=== PATIENT | female | born 1985 | race Caucasian/White ===

== ENCOUNTER 2020-10-19 03:45 | Inpatient (IN) | payer OTHER ==
[2020-10-19 05:03] LABS: #Monocytes 0.8 10x3/uL (0.0-1.1); %Basophils 0.3 % (0.0-2.0); %Eosinophils 0.4 % (0.0-6.0); %Lymphocytes 12.7 % (18.0-47.0); %Monocytes 9.8 % (0.0-10.0); %Neutrophils 76.5 % (40.0-75.0); Hemoglobin 12.6 g/dL (12.0-15.5); Mean Corpuscular HGB CONC 34.4 g/dL (32.0-36.0); Mean Corpuscular Hemoglobin 31.9 pg (27.0-33.0); Mean Corpuscular Volume 92.7 fl (81.6-98.3); Mean Platelet Volume 10.8 fl (7.4-10.4); Platelet Count 253 10x3/uL (150-450); RBC Distribution Width 13.4 % (11.5-14.5); Red Blood Cell (RBC) Count 3.95 10x6/uL (3.90-5.03); White Blood Cell (WBC) Count 7.8 10x3/uL (3.5-10.5)
[2020-10-19] MEDS ORDERED: Mag-Al Plus 1200 MG/1200 MG/120 MG/30 ML UDCUP ONE (05:06)
[2020-10-19] MEDS ORDERED: Lidocaine Viscous Sol 2% 15 ml UD Cup ONE (05:06)
[2020-10-19] MEDS ORDERED: Morphine 2 MG/ML VIAL ONE (05:07)
[2020-10-19 05:21] LABS: Bilirubin Neg (Negative); Blood, Urine 10 (Negative); Clarity Cloudy (Clear); Glucose, Urine (Dipstick) Normal (Negative); Ketone, Urine 50 mg/dL (Negative); Leukocyte 100 (Negative); Nitrite Negative (Negative); Protein, Urine (Dipstick) 15 mg/dl (Neg-Trace)
[2020-10-19 05:25] LABS: ALT (SGPT) 23 U/L (8-55); AST (SGOT) 22 U/L (5-34); Albumin 3.4 g/dL (3.5-5.0); Alkaline Phosphatase 78 U/L (40-110); Anion Gap 14 mmol/L (10-20); BUN (Urea Nitrogen) 5 mg/dL (7.0-18.7); Bilirubin, Total 0.5 mg/dL (0.2-1.2); Calc. Creatinine Clearance 0 mL/min (70-130); Calcium 8.7 mg/dL (7.8-10.44); Carbon Dioxide 19 mmol/L (22-29); Chloride 106 mmol/L (98-107); Globulin 3.3 g/dL (2.4-3.5); Glucose 95 mg/dL (70-105); Potassium 3.7 mmol/L (3.5-5.1); Protein, Total 6.7 g/dL (6.0-8.3); Sodium 135 mmol/L (136-145)
[2020-10-19 05:29] LABS: Bacteria/HPF 2+ HPF (None Seen); Squamous Epithelial 0-3 HPF (0-3)
[2020-10-19] MEDS ORDERED: cefTRIAXone\\ROCEPHIN 1 GM VIAL ONE (05:52)
[2020-10-19 05:57] LABS: SARS-CoV-2 NAA Rapid Test Not Detected (NotDetected)
[2020-10-19] MEDS ORDERED: Acetaminophen 500 MG TAB PO PRN ×2 (05:57→08:16)
[2020-10-19] MEDS ORDERED: Acetaminophen/Codeine 30-300mg Tablet PO PRN (07:20)
[2020-10-19] MEDS: Lactated Ringer's 1,000 ML IV SCH ×3 (07:36→16:37)
[2020-10-19] MEDS ORDERED: HYDROcodone/Acetaminophen 5/325 mg Tablet PO PRN (08:16)
[2020-10-19] MEDS ORDERED: Ondansetron PF 4 MG/2 ML Vial IVP PRN (08:16)
[2020-10-19] MEDS: HYDROcodone/Acetaminophen 5/325 mg Tablet PO PRN ×4 (08:17→21:50)
[2020-10-19] MEDS: Gentamicin Sulfate 80 MG in Premix Bag 1 BAG IVPB SCH (08:18)
[2020-10-19] MEDS: Prenatal Vitamin 1 TAB PO SCH (08:18)
[2020-10-19] MEDS ORDERED: Ondansetron ODT 4 MG TAB SL PRN (08:33)
[2020-10-19] MEDS ORDERED: Famotidine 20 MG TAB PO SCH (09:15)
[2020-10-19] MEDS: Fioricet 325/50/40 mg Tablet PO PRN ×2 (09:51→16:42)
[2020-10-19 11:07] VITALS: BMI 37.5
[2020-10-19] MEDS ORDERED: Phenazopyridine HCl 97.5 MG TABLET PO PRN (18:16)
[2020-10-19] MEDS: cefTRIAXone\\ROCEPHIN 1 GM in Sodium Chloride 0.9% 100 ML IVPB SCH (21:18)
[2020-10-20] MEDS: Lactated Ringer's 1,000 ML IV SCH ×3 (02:14→15:29)
[2020-10-20] MEDS: HYDROcodone/Acetaminophen 5/325 mg Tablet PO PRN ×4 (05:44→21:01)
[2020-10-20] MEDS ORDERED: cefTRIAXone\\ROCEPHIN 1 GM in Sodium Chloride 0.9% 100 ML IVPB SCH (06:00)
[2020-10-20] MEDS: Prenatal Vitamin 1 TAB PO SCH (08:20)
[2020-10-20] MEDS: Gentamicin Sulfate 80 MG in Premix Bag 1 BAG IVPB SCH (08:21)
[2020-10-20] MEDS ORDERED: Famotidine 20 MG TAB PO SCH (09:00)
[2020-10-20] MEDS: cefTRIAXone\\ROCEPHIN 1 GM in Sodium Chloride 0.9% 100 ML IVPB SCH ×2 (09:56→21:00)
[2020-10-20] MEDS: Famotidine 20 MG TAB PO SCH (21:00)
[2020-10-21] MEDS: HYDROcodone/Acetaminophen 5/325 mg Tablet PO PRN ×3 (01:33→11:31)
[2020-10-21] MEDS: Lactated Ringer's 1,000 ML IV SCH ×2 (01:37→08:35)
[2020-10-21] MEDS: Gentamicin Sulfate 80 MG in Premix Bag 1 BAG IVPB SCH (07:12)
[2020-10-21] MEDS: Famotidine 20 MG TAB PO SCH (07:12)
[2020-10-21] MEDS: cefTRIAXone\\ROCEPHIN 1 GM in Sodium Chloride 0.9% 100 ML IVPB SCH (08:36)
[2020-10-21] MEDS: Prenatal Vitamin 1 TAB PO SCH (08:36)
[2020-10-21 11:57] VITALS: BP 100/68; TEMP 98.2
== END 2020-10-21 12:51 | disposition home or self-care (01) | DRG 833 ==
LOC: CSHERS 03:45 → CSHANTE 06:48
PROVIDERS: ADMIT Student in an Organized Health Care Education/Training Program; ATTEND Student in an Organized Health Care Education/Training Program
DX: O23.02 Infections of kidney in pregnancy, second trimester (principal); Z20.822 Contact with and (suspected) exposure to COVID-19; O99.612 Diseases of the digestive system complicating pregnancy, second trimester; K80.20 Calculus of gallbladder without cholecystitis without obstruction; B96.20 Unspecified Escherichia coli [E. coli] as the cause of diseases classified elsewhere; Z3A.25 25 weeks gestation of pregnancy; Z90.721 Acquired absence of ovaries, unilateral
CPT/HCPCS: 0240U; 80053; 81003; 81015; 85025; 87040; 87077; 87086; 87186; 96365; 96375; J0696; J1580; J2270; J3490; Q0162

== ENCOUNTER 2021-01-22 21:20 | Day surgery (SDC) | payer OTHER ==
[2021-01-22 21:55] VITALS: BMI 37.0
[2021-01-22] MEDS ORDERED: hydrALAZINE 20 MG/ML VIAL SLOW IVP PRN (22:11)
[2021-01-22 22:19] LABS: Fetal Membranes Rupture No Membranes Rupture (No Rupture)
[2021-01-22] MEDS ORDERED: Ondansetron ODT 8 MG TAB SL PRN (22:55)
== END 2021-01-22 23:50 | disposition home or self-care (01) ==
LOC: CSHLD/OP 21:20
PROVIDERS: ATTEND Student in an Organized Health Care Education/Training Program
DX: O99.891 Other specified diseases and conditions complicating pregnancy (principal); N89.8 Other specified noninflammatory disorders of vagina; O98.513 Other viral diseases complicating pregnancy, third trimester; B00.9 Herpesviral infection, unspecified; Z3A.38 38 weeks gestation of pregnancy; Z79.899 Other long term (current) drug therapy
CPT/HCPCS: 76815; 84112; 99283; Q0162

== ENCOUNTER 2021-01-25 09:41 | Outpatient (CLI) | payer OTHER ==
[2021-01-26 01:12] LABS: SARS-CoV-2 PCR by NAA Not Detected (NotDetected)
== END 2021-01-25 09:42 | disposition home or self-care (01) ==
LOC: CSHLAB 09:41
PROVIDERS: ATTEND Student in an Organized Health Care Education/Training Program
DX: Z20.822 Contact with and (suspected) exposure to COVID-19 (principal)
CPT/HCPCS: U0003; U0005